=== PATIENT | female | born 2005 | race Caucasian/White ===

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

== ENCOUNTER 2023-01-25 14:36 | Emergency (ER) | payer OTHER ==
[~2023-01-25] VITALS: Ht 167.6 cm; Wt 95.5 kg
[~2023-01-25 14:36] MED LIST: BACL10TA PO; IBUP-1492 PO
[2023-01-25 15:30] LABS: COVID AG,FIA SOURCE NASAL SWAB
[2023-01-25 15:49] LABS: INFLUENZA TYPE A NEGATIVE FOR TYPE A (NEGATIVE); INFLUENZA TYPE B NEGATIVE FOR TYPE B (NEGATIVE)
[2023-01-25] MEDS ORDERED: IBUPROFEN 600 MG TABLET PO ONE (16:15)
[2023-01-25] MEDS ORDERED: AMOX250C4 PO (16:27)
[2023-01-25 16:32] VITALS: BP 124/84
== END 2023-01-25 17:05 | disposition home or self-care (01) ==
LOC: EMS 14:40
DX: J02.0 Streptococcal pharyngitis (principal); F12.90 Cannabis use, unspecified, uncomplicated; Z20.822 Contact with and (suspected) exposure to COVID-19
CPT/HCPCS: 86308; 87430; 87804; 99283